=== PATIENT | female | born 1990 | race Caucasian/White ===

== ENCOUNTER → 2017-09-28 | Outpatient (CLI) | payer BC, OTHER ==
[~2017-09-28] MED LIST: CYCL10 PO; DOXY100 PO; HYDACE5 PO; OXYACE5T PO; POTCHL20ER PO; Percocet 5-3251 EACH PO; RXPROM25 PO
[2017-09-30 16:11] LABS: MDA Not Detected (NOTDET); MDEA Not Detected (NOTDET); MDMA Not Detected (NOTDET)
== END | disposition home or self-care (01) ==
LOC: LAB SHORT 16:50 → LAB 16:50
PROVIDERS: Psychiatry & Neurology Psychiatry
DX: F19.11 Other psychoactive substance abuse, in remission (principal)
CPT/HCPCS: G0480

== ENCOUNTER 2020-07-13 12:02 | Emergency (ER) | payer OTHER ==
[~2020-07-13] VITALS: Ht 172.7 cm; Wt 59.0 kg
== END 2020-07-13 13:03 | disposition home or self-care (01) ==
LOC: ER 12:02
DX: L23.7 Allergic contact dermatitis due to plants, except food (principal); F17.210 Nicotine dependence, cigarettes, uncomplicated; Z88.5 Allergy status to narcotic agent
CPT/HCPCS: 96372; 99283-25; J3301

== ENCOUNTER 2020-07-21 08:41 | Emergency (ER) | payer OTHER ==
[~2020-07-21] VITALS: Ht 170.2 cm; Wt 68.0 kg
== END 2020-07-21 10:08 | disposition home or self-care (01) ==
LOC: ER 08:41
DX: L23.7 Allergic contact dermatitis due to plants, except food (principal); F17.210 Nicotine dependence, cigarettes, uncomplicated; Z88.5 Allergy status to narcotic agent
CPT/HCPCS: 99282; J7512

== ENCOUNTER 2020-12-28 13:01 | Emergency (ER) | payer OTHER ==
[~2020-12-28] VITALS: Ht 170.2 cm; Wt 61.2 kg
[2020-12-28] MEDS ORDERED: Mupirocin22 GM TOP (13:52)
[2020-12-28] MEDS ORDERED: CEPH500 PO (13:52)
== END 2020-12-28 14:01 | disposition home or self-care (01) ==
LOC: ER 13:01
DX: L01.00 Impetigo, unspecified (principal); F17.210 Nicotine dependence, cigarettes, uncomplicated
CPT/HCPCS: 99282

== ENCOUNTER 2023-01-19 17:25 | Emergency (ER) | payer OTHER ==
[~2023-01-19] VITALS: Ht 170.2 cm; Wt 65.8 kg
[~2023-01-19 17:25] MED LIST changes: +CEPH500 PO; +Mupirocin22 GM TOP
[2023-01-19] MEDS ORDERED: AMOCLA875 PO (18:03)
[2023-01-19 18:04] VITALS: BP 130/101
== END 2023-01-19 18:07 | disposition home or self-care (01) ==
LOC: ER 17:25
DX: K02.9 Dental caries, unspecified (principal); H66.91 Otitis media, unspecified, right ear; Z88.5 Allergy status to narcotic agent; Z79.899 Other long term (current) drug therapy; F17.210 Nicotine dependence, cigarettes, uncomplicated
CPT/HCPCS: A9270

== ENCOUNTER 2024-03-10 22:31 | Emergency (ER) | payer OTHER ==
[~2024-03-10] VITALS: Ht 162.6 cm; Wt 72.6 kg
[~2024-03-10 22:31] MED LIST changes: +AMOCLA875 PO
[2024-03-10] MEDS ORDERED: Amoxicillin/Clavulanate K 875 MG Tab PO ONE (22:40)
[2024-03-10] MEDS ORDERED: Diphth,Pertuss(Acell),Tet Vac 0.5 ML VIAL IM ONE (22:40)
[2024-03-11 00:49] VITALS: BP 133/70
[2024-03-11] MEDS ORDERED: AMOCLA875 PO (00:52)
== END 2024-03-11 00:55 | disposition home or self-care (01) ==
LOC: ER 22:31
DX: S51.851A Open bite of right forearm, initial encounter (principal); S61.451A Open bite of right hand, initial encounter; W54.0XXA Bitten by dog, initial encounter; Z88.5 Allergy status to narcotic agent; Z79.899 Other long term (current) drug therapy; F17.210 Nicotine dependence, cigarettes, uncomplicated
CPT/HCPCS: 12042; 73100; 90471; 90715; 99283-25; A9270